=== PATIENT | female | born 1935 | race Caucasian/White ===

== ENCOUNTER 2025-07-25 19:56 | Inpatient (IN) | payer MEDICARE, SELFPAY ==
[2025-07-25] VITALS (11 sets, daily range): BP systolic 81–135; BP diastolic 54–93; BMI 37.3; BMI 35.7
[2025-07-25 14:53] LABS: Hematocrit 43.5 % (37.0-47.0); Hemoglobin 14.9 g/dL (12.0-16.0); Mean Corp Hgb Conc. 34.3 g/dL (33.0-37.0); Mean Corpuscular Volume 89.0 fL (81.0-99.0); Nucleated Red Blood Cells % 0 %; Platelet Count 223 10^3/uL (130-400); Red Cell Dist. Width 13.7 % (11.5-14.5)
[2025-07-25 15:04] LABS: Blood Urea Nitrogen 14 mg/dl (7-17); Calcium 8.8 mg/dl (8.4-10.2); Carbon Dioxide 24 mmol/L (22-30); Chloride 100 mmol/L (98-107); Estimated Creatinine Clearance 77 ml/min; Glucose 94 mg/dl (70-99); Lipase 44 U/L (23-300); Sodium 136 mmol/L (135-145); eGFR > 60.00
[2025-07-25] MEDS: NSS 1000 IV ×2 (15:06→21:08)
--- NOTE | 2025-07-25 15:44 | ED.GENMED ---
History of Present Illness
<Lilian Hickman PA-C - Last Filed: 07/26/25 08:06>
General
Chief Complaint: Dehydration Symptoms
Time Seen by Provider: 07/25/25 13:15
<Dmitriy Quinones PA-C - Last Filed: 07/25/25 19:58>
General
Source: patient
History of Present Illness
History of Present Illness:
.
Phy Exam
<Dmitriy Quinones PA-C - Last Filed: 07/25/25 19:58>
Physical Exam
Physical Exam:
.
Course
<Lilian Hickman PA-C - Last Filed: 07/26/25 08:06>
Orders/Labs/Results
Orders:
Orders
07/25/25 14:22
IV Insert/Care/Rem.- Treatment PRN
0.9% Sodium Chloride 1000 ml [Nss] 1,000 ml IV BOLUS
Obstruct Series W/PA Chest [CR Obstruct Series W/pa Chest] Urgent
Comment:
Reason For Exam: H/O SBO; DIARRHEA
07/25/25 14:33
Basic Metabolic Panel Urgent
Complete Blood Count/With Diff Urgent
Lipase Urgent
C DIFF [C difficile Antigen & Toxins] Urgent
JANAE Source: Feces/Stool
Specimen Description:
Date Specimen was Collected: 07/25/25
Time Specimen was Collected: 14:31
Stool Culture Urgent
JANAE Source: Feces/Stool
Specimen Description:
Date Specimen was Collected: 07/25/25
Time Specimen was Collected: 14:31
07/25/25 16:01
Basic Metabolic Panel Urgent
07/25/25 16:57
Sownr-Jjxq-Hgkhcnu Stat
Comment: ADD ON
Magnesium Stat
Comment: ADD ON
Phosphorus Stat
Comment: ADD ON
Potassium Stat
07/25/25 17:07
Add On- LAB Urgent
Tests Added?: magnesium
07/25/25 17:08
Vancomycin HCl [Firvanq] 125 mg PO NOW STA
07/25/25 17:18
Magnesium Sulfate 2 Gram/50 ml [Magnesium Sulfate] 2 gram in 50 ml IV NOW
Potassium Chloride [KCl] 40 meq PO NOW STA
07/25/25 19:29
Admit/Transfer Patient As Directed
Co-Sign Provider:
Level of Care: Inpatient admission
Assign to:: Medical/Surgical
Physician / Group: Luke
Diagnosis: Recurrent cdiff
Reason for Hospitalization: severe diarrhea with cdiff
Expected length of stay greater than two midnights?: Yes
ELOS- Estimated Length of Stay in days: 2
I certify the patient meets the requirements for IP care: Yes
Code Status As Directed
Resuscitation Status: Do not resuscitate
Reached after discussion with pt or family/Healthcare POA: Yes
PRN Pain Medication Management As Directed
May give lesser potent ordered pain med per pt: Yes
preference::
Protocol:: Medication orders for pain may be administered in a
manner that supports deferring to patient preference
when the pt is:
- Requesting an ordered lesser potent pain medication.
Least to most potent pain medications are defined
as: acetaminophen < NSAID < tramadol < opioids
(morphine, oxycodone, hydromorphone).
- Requesting a lesser dose of the same medication IF
ORDERED.
- Requesting a less intrusive route of administration
if both routes are prescribed by the provider (PO <
IV).
07/25/25 19:30
DNR Bracelet Application ONCE
07/25/25 19:34
Add On- LAB Stat
Tests Added?: phosphorus
07/25/25 20:26
0.9% Sodium Chloride 1000 ml [Nss] 1,000 ml IV 125 mls/hr
Acetaminophen [Tylenol] 650 mg PO Q4HPRN PRN
Ketorolac [Toradol] 10 mg IV Q6HPRN PRN
Ondansetron Injectable [Zofran] 4 mg IV Q6HPRN PRN
07/25/25 20:26
VTE Contraindication Routine
VTE Mechanical Device Contraindication: Medical Contraindication
Pharmocologic Contraindication: Medical Contraindication
Activity As Directed
Activity Level: With Assistance
Vital Signs As Directed
Frequency: Per unit guidelines
07/25/25 21:00
Apixaban [Eliquis] 5 mg PO BID
07/26/25 00:00
Vancomycin HCl [Firvanq] 125 mg PO Q6
07/26/25 Breakfast
Regular
At Your Request: Full Participation
Does patient need a safe tray?: No
07/26/25 07:20
Basic Metabolic Panel IN AM
Complete Blood Count/No Diff IN AM
Magnesium IN AM
07/26/25 08:00
Amlodipine [Norvasc] 5 mg PO DAILY
Methimazole [Tapazole] 5 mg PO DAILY
Abnormal Lab Results
07/25/25 07/25/25
14:33 16:57
WBC 15.0 H 10^3/uL
(4.8-10.8)
Abs Immat Gran (auto) 0.1 H 10^3/uL
(0-0.05)
Absolute Neuts (auto) 10.9 H 10^3/uL
(1.4-6.5)
Absolute Monos (auto) 1.6 H 10^3/uL
(0.1-0.6)
Immature Gran % 0.6 H %
(0-0.5)
Lymphocytes % 15.5 L %
(20.5-51.1)
Monocytes % 10.6 H %
(1.7-9.3)
Potassium 2.9 L mmol/L
(3.5-5.1)
Magnesium 1.3 L mg/dl
(1.6-2.3)
Total Bilirubin 1.6 H mg/dl
(0.2-1.3)
Direct Bilirubin 0.5 H mg/dl
(0.0-0.4)
AST 37 H U/L
(14-36)
07/25/25 14:33
07/25/25 16:57
Vital Signs
Initial and Last Documented VS:
Initial Vital Signs
Temp Pulse Resp BP Pulse Ox
36.7 C 80 17 126/71 97
07/25/25 12:32 07/25/25 12:32 07/25/25 12:32 07/25/25 12:32 07/25/25 12:32
Last Documented Vital Signs
Temp Pulse Resp BP Pulse Ox
36.8 C 85 16 120/63 94
07/26/25 03:56 07/26/25 03:56 07/26/25 03:56 07/26/25 03:56 07/26/25 03:56
<Dmitriy Quinones PA-C - Last Filed: 07/25/25 19:58>
Orders/Labs/Results
Orders:
Orders
07/25/25 14:22
IV Insert/Care/Rem.- Treatment PRN
0.9% Sodium Chloride 1000 ml [Nss] 1,000 ml IV BOLUS
Obstruct Series W/PA Chest [CR Obstruct Series W/pa Chest] Urgent
Comment:
Reason For Exam: H/O SBO; DIARRHEA
07/25/25 14:33
Basic Metabolic Panel Urgent
Complete Blood Count/With Diff Urgent
Lipase Urgent
C DIFF [C difficile Antigen & Toxins] Urgent
JANAE Source: Feces/Stool
Specimen Description:
Date Specimen was Collected: 07/25/25
Time Specimen was Collected: 14:31
Stool Culture Urgent
JANAE Source: Feces/Stool
Specimen Description:
Date Specimen was Collected: 07/25/25
Time Specimen was Collected: 14:31
07/25/25 16:01
Basic Metabolic Panel Urgent
07/25/25 16:57
Pqzmn-[id number]-Rtztexq Stat
Comment: ADD ON
Magnesium Stat
Comment: ADD ON
Phosphorus Stat
Comment: ADD ON
Potassium Stat
07/25/25 17:07
Add On- LAB Urgent
Tests Added?: magnesium
07/25/25 17:08
Vancomycin HCl [Firvanq] 125 mg PO NOW STA
07/25/25 17:18
Magnesium Sulfate 2 Gram/50 ml [Magnesium Sulfate] 2 gram in 50 ml IV NOW
Potassium Chloride [KCl] 40 meq PO NOW STA
07/25/25 19:29
Admit/Transfer Patient As Directed
Co-Sign Provider:
Level of Care: Inpatient admission
Assign to:: Medical/Surgical
Physician / Group: Luke
Diagnosis: Recurrent cdiff
Reason for Hospitalization: severe diarrhea with cdiff
Expected length of stay greater than two midnights?: Yes
ELOS- Estimated Length of Stay in days: 2
I certify the patient meets the requirements for IP care: Yes
Code Status As Directed
Resuscitation Status: Do not resuscitate
Reached after discussion with pt or family/Healthcare POA: Yes
PRN Pain Medication Management As Directed
May give lesser potent ordered pain med per pt: Yes
preference::
Protocol:: Medication orders for pain may be administered in a
manner that supports deferring to patient preference
when the pt is:
- Requesting an ordered lesser potent pain medication.
Least to most potent pain medications are defined
as: acetaminophen < NSAID < tramadol < opioids
(morphine, oxycodone, hydromorphone).
- Requesting a lesser dose of the same medication IF
ORDERED.
- Requesting a less intrusive route of administration
if both routes are prescribed by the provider (PO <
IV).
07/25/25 19:30
DNR Bracelet Application ONCE
07/25/25 19:34
Add On- LAB Stat
Tests Added?: phosphorus
07/25/25 20:26
0.9% Sodium Chloride 1000 ml [Nss] 1,000 ml IV 125 mls/hr
Acetaminophen [Tylenol] 650 mg PO Q4HPRN PRN
Ketorolac [Toradol] 10 mg IV Q6HPRN PRN
Ondansetron Injectable [Zofran] 4 mg IV Q6HPRN PRN
07/25/25 20:26
VTE Contraindication Routine
VTE Mechanical Device Contraindication: Medical Contraindication
Pharmocologic Contraindication: Medical Contraindication
Activity As Directed
Activity Level: With Assistance
Vital Signs As Directed
Frequency: Per unit guidelines
07/25/25 21:00
Apixaban [Eliquis] 5 mg PO BID
07/26/25 00:00
Vancomycin HCl [Firvanq] 125 mg PO Q6
07/26/25 Breakfast
Regular
At Your Request: Full Participation
Does patient need a safe tray?: No
07/26/25 07:20
Basic Metabolic Panel IN AM
Complete Blood Count/No Diff IN AM
Magnesium IN AM
07/26/25 08:00
Amlodipine [Norvasc] 5 mg PO DAILY
Methimazole [Tapazole] 5 mg PO DAILY
Abnormal Lab Results
07/25/25 07/25/25
14:33 16:57
WBC 15.0 H 10^3/uL
(4.8-10.8)
Abs Immat Gran (auto) 0.1 H 10^3/uL
(0-0.05)
Absolute Neuts (auto) 10.9 H 10^3/uL
(1.4-6.5)
Absolute Monos (auto) 1.6 H 10^3/uL
(0.1-0.6)
Immature Gran % 0.6 H %
(0-0.5)
Lymphocytes % 15.5 L %
(20.5-51.1)
Monocytes % 10.6 H %
(1.7-9.3)
Potassium 2.9 L mmol/L
(3.5-5.1)
Magnesium 1.3 L mg/dl
(1.6-2.3)
Total Bilirubin 1.6 H mg/dl
(0.2-1.3)
Direct Bilirubin 0.5 H mg/dl
(0.0-0.4)
AST 37 H U/L
(14-36)
07/25/25 14:33
07/25/25 16:57
Vital Signs
Initial and Last Documented VS:
Initial Vital Signs
Temp Pulse Resp BP Pulse Ox
36.7 C 80 17 126/71 97
07/25/25 12:32 07/25/25 12:32 07/25/25 12:32 07/25/25 12:32 07/25/25 12:32
Last Documented Vital Signs
Temp Pulse Resp BP Pulse Ox
36.8 C 85 16 120/63 94
07/26/25 03:56 07/26/25 03:56 07/26/25 03:56 07/26/25 03:56 07/26/25 03:56
<Lilian Hickman PA-C - Last Filed: 07/26/25 08:06>
MDM/Problems Addressed
Differential Diagnosis Includes:
see MDM
MDM/Problems Addressed:
Note:
CHIEF COMPLAINT(S)
Diarrhea since Thursday night.
HISTORY OF PRESENT ILLNESS
The patient 89 y/o F, presents with diarrhea that started 2 days ago.
pt was hospitalized at [facility] discharged 07/03 with vancomycin for c diff.
She describes her bowel movements as mostly diarrhea, with occasional episodes being clear orange liquid. She states, 'One or two times, like I went to the bathroom, and I went to get back in bed, and I thought I had gas. And then I realized that
wasnt gas. It was liquid.' She denies seeing blood but mentions, 'every once in a while when I look in the toilet, its the same orange liquid stuff.' The diarrhea has persisted despite a previously prescribed course of Vancomycin, which she took
after being diagnosed with Clostridioides difficile (C. diff) infection about 3 weeks ago following a hospital admission for a partial bowel obstruction.
when pt anneliese tto and had diarrhea, she was also having a lot of pain, was diagnosed with partial SBO that resolved on it's own without NGT and surgery
The patient describes feeling dehydrated and expressed hope for receiving fluids. pt has no pain today
she denies fever, bloody stool, abdominal distension, vomitng
PAST MEDICAL AND SURGICAL HISTORY
The patient was previously hospitalized for a partial bowel obstruction, which required surgery to remove a section of her intestine years ago. She notes, 'they took out three inches of my intestine' due to a previous bowel obstruction caused by
scar tissue from earlier surgeries.
ADDITIONAL HISTORY OBTAINED FROM SOURCES OTHER THAN THE PATIENT
Per the patients friend, 'She told me every time she got up, it would have to come out,' indicating significant frequency in bowel movements.
CHRONIC MEDICAL CONDITIONS SIGNIFICANTLY AFFECTING CARE
The patient has a history of recurrent bowel obstructions and recent C. diff infection, treated with Vancomycin.
SOCIAL HISTORY
The patient mentions being nearly 89 years old and is set to get hearing aids, indicating some hearing loss. Recent exploration of healthcare options was motivated by her sons preference, as stated, 'My son loves this hospital,' highlighting
supportive family involvement in her care choices.
REVIEW OF SYSTEMS
- Gastrointestinal:
- Diarrhea starting Thursday night.
- Occasional clear orange liquid in stool.
- Prior abdominal pain, resolved.
- General:
- Feeling of dehydration.
PHYSICAL EXAM
GENERAL: Alert , in no apparent distress
EYE: pupils equal and reactive
NECK: Supple
ENT: o/p clr, mmm.
CARDIAC: Regular rate and rhythm .
LUNGS: Clear breath sounds bilaterally, no acute respiratory distress, no wheezes/rales/rhonchi
ABDOMEN: Soft obese, without focal tenderness, no r/g, no cvat, normal bowel sounds
NEUROLOGICAL: Alert and oriented, no focal neuro deficits
SKIN: Warm and dry, skin intact.
MUSCULOSKELETAL: No edema, well perfused. neg rodrigo's sign
PSYCH: Normal and appropriate interaction.
- Nursing notes reviewed, and vital signs reviewed.
PLAN
- Initiate fluid therapy to address dehydration.
- Conduct abdominal X-ray to assess for possible bowel obstruction.
- Await blood work results to determine the need for further medical intervention or hospitalization.
DIFFERENTIAL DIAGNOSIS
The Differential Diagnosis includes, in no particular order and is not limited to:
1. Clostridioides difficile (C. diff) infection recurrence
2. Gastroenteritis
3. Partial bowel obstruction
4. Irritable bowel syndrome
5. Inflammatory bowel disease
6. Malabsorption syndrome
7. Ischemic colitis
8. Microscopic colitis
9. Medication-induced diarrhea
10. Small intestinal bacterial overgrowth
07/25/25 - 16:46
Antigen test for C-diff is positive, but toxin test is negative. Based on discussion with Dr. Quesada, reinfection is possible, but recurrence less likely without positive toxin result. Potassium level could not be obtained due to clotting, will
attempt redraw from alternative site to ensure accurate potassium level, particularly important given patients history of low potassium during diarrhea. Decision pending on initiating antibiotics; patient hesitant but understands risk of not
treating possible C-diff due to persistent diarrhea. Will proceed with antibiotic treatment while continuing to monitor potassium levels.
<Lilian Hickman PA-C - Last Filed: 07/26/25 08:06>
*Pulse Oximetry
SaO2: 95
Oxygen Mode of Delivery: Room air
<Dmitriy Quinones PA-C - Last Filed: 07/25/25 19:58>
*Pulse Oximetry
Patient hypoxic: no
*Critical Care Note
Total Time (30-74mins, 75-104mins- exclusive of procedures): Not Applicable
<Dmitriy Quinones PA-C - Last Filed: 07/25/25 19:58>
Patient Management
Discussion with other providers: Hospitalist
Escalation/DeEscalation of care consider admission/obs:
Patient received in signout pending chemistry results given the labs were persistently hemolyzing. Potassium in the come back at 2.9, magnesium at 1.3. IV magnesium repletion and p.o. potassium repletion ordered. While getting the medications,
patient was persistently having diarrhea, estimated to be at least 4-5 episodes. Given the persistent diarrhea in the setting of recent C. difficile colitis will admit for continued evaluation and treatment. Hospitalist team notified and accepts.
ED Attending Note
<Lilian Hickman PA-C - Last Filed: 07/26/25 08:06>
-
Portions of this chart may have been created with voice recognition software.� Occasional wrong word or��sound alike� substitutions may have occurred due to the inherent limitations of voice recognition software.
Discharge Plan
Departure
Patient Disposition: Admit
Date of Disposition: 07/25/25
Time of Disposition: 19:04
Presentation/result/management discussed w/ accepting MD/DO: Hospitalist
Discharge Problem:
Diarrhea, Acute hypokalemia, Hypomagnesemia
Interventions
Interventions:
*Risk Screen - Suicide Last Done: 07/25/25 12:39
*General Assessment Last Done: 07/25/25 12:39
*Neglect/Abuse Screening Last Done: 07/25/25 12:39
*ED- Fall Risk Assessment Last Done: 07/25/25 13:05
*ED COVID-19 Vaccine History Last Done: 07/25/25 12:39
*ED Influenza Vaccine History Last Done: 07/25/25 12:39
*Nursing Disposition Last Done: 07/25/25 20:25
ED- Cardiac Assessment Last Done: 07/25/25 15:00
ED- Neurological Assessment Last Done: 07/25/25 15:00
ED- Pulmonary Assessment Last Done: 07/25/25 15:00
Discharge Date and Time
Discharge Date/Time: 07/25/25 20:26
[2025-07-25 16:30] LABS: Blood Urea Nitrogen 14 mg/dl (7-17); Calcium 8.4 mg/dl (8.4-10.2); Carbon Dioxide 27 mmol/L (22-30); Chloride 101 mmol/L (98-107); Estimated Creatinine Clearance 77 ml/min; Glucose 94 mg/dl (70-99); Sodium 135 mmol/L (135-145); eGFR > 60.00
[2025-07-25 17:17] LABS: Magnesium 1.3 mg/dl (1.6-2.3); Potassium 2.9 mmol/L (3.5-5.1)
[2025-07-25 17:31] LABS: ALT (SGPT) 16 U/L (0-35); AST (SGOT) 37 U/L (14-36); Albumin 4.0 g/dl (3.5-5.0); Alkaline Phosphatase 67 U/L (38-126); Total Protein 7.2 g/dl (6.3-8.2)
[2025-07-25] MEDS: MAGNESIUM SULFATE 50 IV (18:08)
[2025-07-25] MEDS: FIRVANQ 125 MG PO ×2 (18:15→23:29)
[2025-07-25] MEDS: KCL 40 MEQ PO (18:16)
--- NOTE | 2025-07-25 19:07 | HPS.HSE ---
Family Physician
-
Family Physician: Dave Mcknight
Chief Complaint
-
Dehydration
History of Present Illness
This is a 89-year-old female with past medical history of bowel obstruction status post partial small bowel resection presenting to the emergency department with recurrence of diarrhea.
She reports she has been having diarrhea about every 15 minutes, watery and appears to be orange liquid. She reports that there was no gas. She has no melena or hematochezia. She denies any fevers or chills.
She stated that she was hospitalized at [facility] for small bowel obstruction on and had vancomycin for C. difficile at that time. She did complete the course.
In the emergency department here she was afebrile, blood pressure was 126/70, pulse was 89 and she was satting 96% on room air.
Exam white count was 15, hemoglobin ambulatory normal. Electrolytes were abnormal with a potassium of 2.9 and a magnesium of 1.3, BUN and creatinine were normal.
Medical History
Past Medical History
Past Medical History: Reports None, Arrhythmia (Paroxysmal atrial fibrillation on anticoagulation), HTN and Hyperthyroidism
Past Surgical History: Reports Bowel Resection (partial)
Social History
Tobacco: Non-smoker
Alcohol: None
Drug: None
Personal:
Family History
Family History: Not pertinent
Allergies / Home Medications
Allergies reflects when Allergies were last updated in [facility].
Home Medications with original date entered in [facility]
Allergy/Medication List:
Allergies
Allergy/AdvReac Type Severity Reaction Status Date / Time
epinephrine Allergy Nausea / Verified 07/25/25 12:35
Vomiting
erythromycin base (From Allergy Unknown Verified 07/25/25 12:35
Erythrocin)
lisinopril Allergy COUGH Verified 07/25/25 17:08
Penicillins Allergy Unknown Verified 07/25/25 12:35
Home Medications
vancomycin 125 mg capsule 125 mg PO QID 14 days #56 caps 07/25/25
Review of Systems
-
Constitutional: Reports No Symptoms
EENT: Reports No Symptoms
Respiratory: Reports No Symptoms
Cardiac: Reports No Symptoms
Abdomen/GI: Reports Diarrhea
: Reports No Symptoms
Musculoskeletal: Reports No Symptoms
Skin: Reports No Symptoms
Neurological: Reports No Symptoms
Endocrine: Reports No Symptoms
Hematologic/Lymphatic: Reports No Symptoms
Psych: Reports No Symptoms
Physical Exam
Vital Signs
Vital Signs
Temp Pulse Resp BP Pulse Ox
97.6 F 89 20 126/70 96
07/25/25 13:05 07/25/25 17:08 07/25/25 17:08 07/25/25 17:08 07/25/25 17:08
Physical Exam
General: Well Developed, Well Nourished and No Apparent Distress
HEENT: NormoCephalic, Moist mucous membranes and Atraumatic
Respiratory: Clear
Cardiac: S1/S2 and Regular Rhythm; No Murmur or Rub
GI: Soft, Non Tender, Non Distended and Normal Bowel Sounds; No Organomegaly
Rectal: Deferred by Provider
Musculoskeletal: No Clubbing, No Cyanosis and No Edema
Skin: No Rash
Neuro: AO x 3 and Nonfocal/grossly intact
Laboratory Results
-
07/25/25 14:33
07/25/25 16:57
Laboratory Results
Total Bilirubin 1.6 mg/dl (0.2-1.3) H 07/25/25 16:57
AST 37 U/L (14-36) H 07/25/25 16:57
ALT 16 U/L (0-35) 07/25/25 16:57
Alkaline Phosphatase 67 U/L (38-126) 07/25/25 16:57
Lipase 44 U/L (23-300) 07/25/25 14:33
Data Reviewed
-
Lab Data: Labs Reviewed by me
Old Records: Reviewed
Impression/Plan
-
IMPRESSION:
89-year-old with past medical history of hypertension, hypothyroid, partial small bowel obstruction with history of last a small small bowel resection who was recently diagnosed with C. difficile at [facility] on July 03 completing a
10-day course of oral vancomycin and now returns to the emergency department with sudden 3 days of worsening diarrhea. She reports going to the bathroom every 15 minutes. In the emergency department she has voluminous amounts of diarrhea with very
frequent stooling. She is hemodynamically stable and afebrile, has leukocytosis and has marked electrolyte abnormality with hypokalemia and hypomagnesemia. C. difficile toxin negative, C. difficile antigen positive. With the degree of diarrhea
clinically despite lack of toxin positivity she likely has recurrence of C. difficile.
PLAN:
Cdiff diarrhea - First recurrence
- admit to med/surg
- started vancomycin in ED, will continue 125 q 6 hours for now, consider fidoxamycin for recurrent cdiff vs vanc taper
- IV NS + potassium and magnesium supplementation
- hold hctz for now
- ID consult
Hyperthyroid
- continue methimazole
Hypertension
� Continue amlodipine
Proximal atrial fibrillation -currently rate controlled
� Patient is not on any rate control agent, monitor for now
� Continue Eliquis
DVT prophylaxis�on Eliquis
CODE STATUS�DNR
[2025-07-25] MEDS: ELIQUIS 5 MG PO (21:15)
[2025-07-25] MEDS: KCL 160 MEQ IV (23:28)
[2025-07-26 03:56] VITALS: BP 120/63
[2025-07-26] MEDS: FIRVANQ 125 MG PO ×4 (05:20→23:04)
[2025-07-26] MEDS: NSS 1000 IV ×3 (06:30→21:49)
[2025-07-26 07:44] LABS: Hematocrit 38.8 % (37.0-47.0); Hemoglobin 13.2 g/dL (12.0-16.0); Mean Corp Hgb Conc. 34.0 g/dL (33.0-37.0); Mean Corpuscular Volume 91.1 fL (81.0-99.0); Platelet Count 182 10^3/uL (130-400); Red Cell Dist. Width 13.6 % (11.5-14.5)
[2025-07-26 07:50] VITALS: BP 128/69
[2025-07-26 08:13] LABS: Blood Urea Nitrogen 10 mg/dl (7-17); Calcium 8.0 mg/dl (8.4-10.2); Carbon Dioxide 25 mmol/L (22-30); Chloride 109 mmol/L (98-107); Estimated Creatinine Clearance 75 ml/min; Glucose 98 mg/dl (70-99); Magnesium 1.8 mg/dl (1.6-2.3); Potassium 3.2 mmol/L (3.5-5.1); Sodium 138 mmol/L (135-145); eGFR > 60.00
--- NOTE | 2025-07-26 08:23 | W.PN.HOSP.TC ---
Today's Communication/Plan
-
Continue oral vancomycin
IVF/hold HCTZ
Replete potassium as needed
ID consult
Assessment / Plan
Assessment / Plan
#C. difficile colitis
- Recently completed 10-day course of vancomycin prescribed at [place], diarrhea worsened recently
- Upon arrival had positive C. difficile antigen though negative toxin, diarrhea consistent with C. difficile
- Was resumed on oral vancomycin 125 mg every 6 hours; milder phenotype, no leukocytosis or BASSAM
- Holding home diuretic for now, receiving IV fluid supportively
- Consult ID for consideration of fidaxomicin
- Trend CBC and temperature curve, monitor BMs
- Avoid Imodium
#Hypokalemia
- Likely associated with diarrhea and GI losses
- Potassium this morning 3.2, magnesium 1.8
- Ordered 80 mEq KCl
- Trend BMP and mag
#Hyperthyroidism
- Home regimen includes methimazole
- Unclear etiology, here stable at this time
- Do not suspect diarrhea from overtreatment
- Will add on TSH for completeness
#Primary hypertension
- Home regimen includes amlodipine and HCTZ
- Holding diuretic due to significant watery diarrhea
- Continue to monitor vitals
#Paroxysmal atrial fibrillation
- Not on rate or rhythm control, home regimen includes Eliquis for AC
- Appears to be in NSR right now, no RVR
- Monitor telemetry
Diet: Regular
DVT prophylaxis: Home Eliquis
CODE STATUS: DNR/DNI
Disposition: PT consulted
Anticipated Discharge: > 48 hours
Subjective/Interval History
-
Date of Service: July 26, 2025
Seen and examined at the bedside. No acute events reported overnight. AFVSS this morning
Potassium 3.2 on a.m. labs. No leukocytosis, renal function at baseline and stable
Patient states she still has watery bowel movements this morning. Mentions that they initially improved on vancomycin though after completing the course came back. She states she did try to eat some vegetables and soup which may have been too
aggressive
Objective Data
-
Labs:
Laboratory Results
07/26/25
07:20
WBC 10.0
Hgb 13.2
Hct 38.8
Plt Count 182
Sodium 138
Potassium 3.2 L
Chloride 109 H
Carbon Dioxide 25
BUN 10
Creatinine 0.6
Glucose 98
Calcium 8.0 L
Vital Signs:
Vital Signs
Temp Pulse Resp BP Pulse Ox
98.2 F 85 16 120/63 94
07/26/25 03:56 07/26/25 03:56 07/26/25 03:56 07/26/25 03:56 07/26/25 03:56
Review of Systems
-
History Source: Patient
All other systems: Reviewed and negative
Physical Exam
-
General: Well Developed, No Apparent Distress and Obese
HEENT: Normocephalic, Atraumatic, Moist Mucous Membranes and Anicteric
Respiratory: Clear to Auscultation and Non Labored Respirations; Negative Accessory Resp Muscle Use
Cardiac: Regular Rhythm and S1/S2; Negative Murmur, Rub or Gallop
GI: Soft, Nontender, Nondistended and Normal Bowel Sounds
Musculoskeletal: No Clubbing, No Cyanosis and No Edema
Skin: Warm and Dry; Negative Rash
Neuro: AO x 3, Nonfocal/Grossly Intact and Central Nerve's Intact
Psych: Calm
Data Reviewed
-
Labs: Labs Reviewed by me and Discussed with Patient
[2025-07-26] MEDS: NORVASC 5 MG PO (09:41)
[2025-07-26] MEDS: TAPAZOLE 5 MG PO (09:41)
[2025-07-26] MEDS: ELIQUIS 5 MG PO ×2 (09:41→19:36)
[2025-07-26] MEDS: BenGay-Like 1 APPLIC TOPICAL ×3 (10:34→21:50)
[2025-07-26] MEDS: KCL 40 MEQ PO ×2 (10:34→13:25)
--- NOTE | 2025-07-26 10:37 | CM ---
pharmacy district manager reviewed patient's chart and met with patient and patient lives alone in a one story home with 2 steps to enter, patient is independent with adl's and ambulation, patient has a walker, cane and w/c, that she does not use, plan is to
home when stable, will follow for any new medications at discharge.
PCP: Dave Mcknight
Pharmacy: [facility] pharmacy
Plan; Home when stable.
--- NOTE | 2025-07-26 10:41 | CON.ID ---
Consultation
-
Date/Time Consultation Requested: 07/26/25 8:15
Date/Time Consultation Performed: 07/26/25 10:41
Requesting Provider: Dr Christian
Performing Provider: Dr Fisher
Reason for Consultation: C. diff colitis, dx 07/03, worsening diarrhea
Chief Complaint / Past History
Chief Complaint
Dehydration
History of Present Illness
Ms Torrez is an 89 year old female with history notable for bowel obstruction s/p partial small bowel resection presenting here for copious diarrhea - reportedly ever 15 minutes, watery and orange. No melena or hematochezia. No fevers or chills.
Note that she had a recent hospitalization at [facility] 07/03 for small bowel obstruction which was complicated by C difficile treated with oral vancomycin. She would have completed the course about two weeks ago.
Since arrival here she has been afebrile, bp stable, wbc initially 15 now 10, hgb 13.2, plt 182,no L shift, na 138, cr 0.6, c difficile ag positive toxin negative, stool culture in progress. Patient is currently on oral vancomycin. ID is consulted
for assistance with management.
Past History
Additional Past Medical History:
Arrhythmia (Paroxysmal atrial fibrillation on anticoagulation), HTN and Hyperthyroidism
Additional Past Surgical History:
Bowel Resection (partial)
Allergy History:
epinephrine Allergy (Verified 07/25/25 12:35)
Nausea / Vomiting
erythromycin base (From Erythrocin) Allergy (Verified 07/25/25 12:35)
Unknown
lisinopril Allergy (Verified 07/25/25 17:08)
COUGH
Penicillins Allergy (Verified 07/25/25 12:35)
Unknown
Medications Reviewed: Yes
Social History
Tobacco: Non-Smoker
Alcohol: None
Drug: None
Family History
Family History: Not Pertinent
Review of Systems
Review of Systems
Constitutional: Reports No Symptoms
EENT: Reports No Symptoms
Respiratory: Reports No Symptoms
Cardiac: Reports No Symptoms
Abdomen/GI: Reports Diarrhea
: Reports No Symptoms
Musculoskeletal: Reports No Symptoms
Skin: Reports No Symptoms
Neurological: Reports No Symptoms
Endocrine: Reports No Symptoms
Hematologic/Lymphatic: Reports No Symptoms
Psych: Reports No Symptoms
Vital Signs
Temp Pulse Resp BP Pulse Ox
98.1 F 81 20 128/69 97
07/26/25 07:50 07/26/25 07:50 07/26/25 07:50 07/26/25 07:50 07/26/25 07:50
Physical Exam
Physical Exam
Constitutional: No Acute Distress
Cardiovascular: Regular Rate and S1/S2; Negative Murmur or Rub
Pulmonary: Clear and Symmetric; Negative Wheezes, Rales or Rhonchi
Gastrointestinal: Soft, Non Tender, Non Distended and Normal Bowel Sounds
Skin: Warm and Dry; Negative Rash or Jaundice
Lab / Diagnostic Study Results
07/26/25 07:20
07/26/25 07:20
Abs Immat Gran (auto) 0.1 10^3/uL (0-0.05) H 07/25/25 14:33
Absolute Neuts (auto) 10.9 10^3/uL (1.4-6.5) H 07/25/25 14:33
Absolute Lymphs (auto) 2.3 10^3/uL (1.2-3.4) 07/25/25 14:33
Absolute Monos (auto) 1.6 10^3/uL (0.1-0.6) H 07/25/25 14:33
Absolute Basos (auto) 0.1 10^3/uL (0-0.2) 07/25/25 14:33
Immature Gran % 0.6 % (0-0.5) H 07/25/25 14:33
Neutrophils % 72.4 % (42.2-75.2) 07/25/25:
Lymphocytes % 15.5 % (20.5-51.1) L 07/25/25:
Monocytes % 10.6 % (1.7-9.3) H 07/25/25 14:33
Eosinophils % 0.5 % (0-6) 07/25/25 14:
Basophils % 0.4 % (0-2) 07/25/25:
Microbiology Results
Micro:
07/25/25 Salmonella/Shigella Culture - Preliminary
Feces/Stool Culture in Progress
Campylobacter Culture - Preliminary
Culture in Progress
Shiga Toxin Test - Pending
07/25/25: C. difficile GDH Antigen & Toxins - Final
Feces/Stool C. difficile antigen positive, toxin negative.
Clostridium difficile present, but toxin not detected.
Patient may be a carrier, colonized with nontoxinogenic
strain or the level of toxin in sample is below detection
limits. This information should be used in conjunction with
the patient's clinical history.
Assessment / Plan
Gastroenteritis
Colonization with C difficile
- follow up stool cultures
- continue oral vancomycin given colonization with C difficile and diarrhea; risk of developing yoel C difficile
- gastroenteritis is typically self limited
- Imodium PRN
[2025-07-26 11:56] VITALS: BP 121/98
[2025-07-26] MEDS: IMODIUM 2 MG PO ×2 (13:24→19:36)
[2025-07-26 15:06] VITALS: BP 113/78
[2025-07-26 19:00] VITALS: BP 138/68
[2025-07-26 23:00] VITALS: BP 124/67
[2025-07-26] MEDS: MELATONIN 5 MG PO (23:30)
[2025-07-27 03:00] VITALS: BP 161/86
[2025-07-27] MEDS: ANESTHETIC LOZENGE 1 LOZENGE PO (04:07)
[2025-07-27] MEDS: FIRVANQ 125 MG PO ×2 (05:25→12:11)
[2025-07-27] MEDS: NSS 1000 IV (05:46)
[2025-07-27 07:02] LABS: Hematocrit 35.8 % (37.0-47.0); Hemoglobin 12.4 g/dL (12.0-16.0); Mean Corp Hgb Conc. 34.6 g/dL (33.0-37.0); Mean Corpuscular Volume 91.8 fL (81.0-99.0); Nucleated Red Blood Cells % 0 %; Platelet Count 189 10^3/uL (130-400); Red Cell Dist. Width 13.7 % (11.5-14.5)
[2025-07-27 07:12] LABS: Blood Urea Nitrogen 10 mg/dl (7-17); Calcium 8.0 mg/dl (8.4-10.2); Carbon Dioxide 22 mmol/L (22-30); Chloride 112 mmol/L (98-107); Estimated Creatinine Clearance 75 ml/min; Glucose 99 mg/dl (70-99); Magnesium 1.6 mg/dl (1.6-2.3); Potassium 3.7 mmol/L (3.5-5.1); Sodium 141 mmol/L (135-145); eGFR > 60.00
[2025-07-27 07:25] VITALS: BP 138/73
[2025-07-27] MEDS: TAPAZOLE 5 MG PO (08:47)
[2025-07-27] MEDS: BenGay-Like 1 APPLIC TOPICAL (08:47)
[2025-07-27] MEDS: ELIQUIS 5 MG PO (08:47)
[2025-07-27] MEDS: NORVASC 5 MG PO (08:47)
--- NOTE | 2025-07-27 09:48 | CM ---
Home no needs at discharge.
Plan; Home no needs.
[2025-07-27] MEDS: IMODIUM 2 MG PO (09:56)
--- NOTE | 2025-07-27 09:59 | W.PN.HOSP.TC ---
Today's Communication/Plan
-
Monitor for diarrhea
Replete K and mag
Discharge this afternoon
Assessment / Plan
Assessment / Plan
#Gastroenteritis
#Recent C. difficile colitis
- Recently completed 10-day course of vancomycin prescribed at [facility], diarrhea worsened recently
- Upon arrival had positive C. difficile antigen though negative toxin, diarrhea consistent with C. difficile
- Was resumed on oral vancomycin 125 mg every 6 hours; milder phenotype, no leukocytosis or BASSAM
- ID evaluated, suspect this is gastroenteritis, possibly viral, rather than C. difficile recurrent
- Stool cultures were taken, remain negative, Shiga toxin negative
- Trend CBC and temperature curve, monitor BMs
- Continue with Imodium as needed
- Discontinue vancomycin
#Hypokalemia
- Likely associated with diarrhea and GI losses
- Improved with repletion, K 3.8 and mag 1.8 today
- Will order additional 40 mEq KCl and 1 g mag sulfate today before discharge
- Encourage follow-up with PCP for repeat labs
#Hyperthyroidism
- Home regimen includes methimazole
- Unclear etiology, here stable at this time
- Do not suspect diarrhea from overtreatment
- Will add on TSH for completeness
#Primary hypertension
- Home regimen includes amlodipine and HCTZ
- Holding diuretic due to significant watery diarrhea
- Continue to monitor vitals
#Paroxysmal atrial fibrillation
- Not on rate or rhythm control, home regimen includes Eliquis for AC
- Appears to be in NSR right now, no RVR
- Monitor telemetry
Diet: Regular
DVT prophylaxis: Home Eliquis
CODE STATUS: DNR/DNI
Disposition: PT consulted
Anticipated Discharge: Today
Subjective/Interval History
-
Date of Service: July 27, 2025
Seen and examined at the bedside. No acute events reported overnight. AFVSS this morning
Patient states she feels very well today, denies any diarrhea as of this morning, 2 episodes reported yesterday evening
Eating breakfast and denies any complaints. Denies abdomen pain, chest pain, dyspnea, fevers or chills
Objective Data
-
Labs:
Laboratory Results
07/27/25
06:20
WBC 7.0
Hgb 12.4
Hct 35.8 L
Plt Count 189
Sodium 141
Potassium 3.7
Chloride 112 H
Carbon Dioxide 22
BUN 10
Creatinine 0.5 L
Glucose 99
Calcium 8.0 L
Vital Signs:
Vital Signs
Temp Pulse Resp BP Pulse Ox
97.8 F 85 18 138/73 95
07/27/25 07:25 07/27/25 07:25 07/27/25 07:25 07/27/25 07:25 07/27/25 07:25
I&O
07/26/25 07/27/25 07/28/25
06:59 06:59 06:59
Intake Total 1340 / 1340
Balance 1340 / 1340
Review of Systems
-
History Source: Patient
All other systems: Reviewed and negative
Physical Exam
-
General: Well Developed, No Apparent Distress and Obese
HEENT: Normocephalic, Atraumatic, Moist Mucous Membranes and Anicteric
Respiratory: Clear to Auscultation and Non Labored Respirations; Negative Accessory Resp Muscle Use
Cardiac: Regular Rhythm and S1/S2; Negative Murmur, Rub or Gallop
GI: Soft, Nontender, Nondistended and Normal Bowel Sounds
Musculoskeletal: No Clubbing, No Cyanosis and No Edema
Skin: Warm and Dry; Negative Rash
Neuro: AO x 3, Nonfocal/Grossly Intact and Central Nerve's Intact
Psych: Calm
Data Reviewed
-
Labs: Labs Reviewed by me, Discussed with Physician (Infectious disease) and Discussed with Patient
[2025-07-27] MEDS: MAGNESIUM SULFATE 102 GRAMS IV (10:49)
[2025-07-27] MEDS: KCL 40 MEQ PO (10:49)
[2025-07-27 11:30] VITALS: BP 138/61
--- NOTE | 2025-07-27 11:43 | W.DCSUMMARY ---
Discharge Summary
Discharge Data
Date of Admission: 07/25/25
Date of Discharge: 07/27/25
Total time spent discharging patient (in min): 32
-
Pending Results: Yes
Additional Pending Results:
Stool culture preliminary negative, follow-up final results with PCP
Hospital Course
Discharging physician: Toni Christian DO
Discharge disposition: Home
Primary hospital diagnoses:
Gastroenteritis
Recent C. difficile colitis
Watery diarrhea
Hypokalemia
Hypomagnesemia
Chronic discharge diagnoses:
Paroxysmal AF on Eliquis
Hyperthyroidism on methimazole
Primary hypertension
History of SBO s/p resection
Hospital course:
89-year-old female with recent hospitalization at [facility] for C. difficile colitis that presented to the hospital at [place] for watery diarrhea. Recently completed course of oral vancomycin 10-day duration, developed worsening watery
stools following completion of the antibiotics. Upon arrival had stool culture obtained and C. difficile testing. Stool culture negative for Shiga toxin, final results pending at time of discharge. C. difficile testing was positive for C.
difficile antigen though negative for toxin. Infectious disease assessed the patient and it was determined that C. difficile testing likely reflected colonization from her recent infection. Current symptoms are more likely related to viral
gastroenteritis. She had quick clinical improvement and was started on Imodium supportively. Due to diarrhea had hypomagnesemia and hypokalemia which were repleted and stable at time of discharge. No need for further antibiotics at discharge.
Recommend follow-up with PCP to repeat potassium and magnesium on routine labs.
Consultants:
Infectious disease�Shilpi Gr MD
Pertinent imaging findings: N/A
Procedures: N/A
Follow-up:
Family doctor within 1 week
Repeat labs (BMP and mag) at office appointment with PCP
Discharge Plan
-
Patient Disposition: Home (Routine Discharge)
Discharge Diagnosis/Procedures: Gastroenteritis
Recent C. difficile colitis
Hypokalemia
Hypomagnesemia
Condition: Fair
Diet: No restrictions
Additional Diets: BRAT diet as needed until symptoms resolve
Activity: As tolerated
Driving Restrictions: No driving for 24 hours
Bathing Restrictions: None
Blood Work: Follow-up with family doctor for repeat BMP, magnesium level, CBC with differential
Instructions: Viral gastroenteritis in adults
Referrals:
Dave Mcknight MD [Family Provider, Family Practice] - in less than 1 week
Additional Discharge Medication Instructions: You do not need to take vancomycin any longer
Use loperamide every 6 hours as needed for diarrhea or loose stools
Do not take hydrochlorothiazide until you see your family doctor for a follow-up office visit. Your blood pressure was fairly well-controlled without this medication while in the hospital and it increases your risks for dehydration when taken while
having diarrhea
Prescriptions:
New
Analgesic [place] (m.salic-menth) 15-10 % Cream
1 applic topical TID PRN (Reason: muscle pain) Qty: 28 0RF
loperamide 2 mg Capsule
2 mg PO Q6HPRN PRN (Reason: diarrhea) 3 Days Qty: 20 0RF
Continued
Eliquis 5 mg
5 mg PO BID
Norvasc 5 mg
5 mg PO BID
methimazole 5 mg
5 mg PO DAILY
Vitamin D3
PO DAILY
Rx Instructions:
pt unsure if it's 200 or 2000 IU
Held
hydrochlorothiazide 25 mg
25 mg PO DAILY
Hold Instructions: Until you see your family doctor in the office
Discharge Orders:
Discharge Patient (As Directed); Ordered 07/27/25
Ordered By: Toni Christian
Discharge Date and Time
Print Language: KOREAN
== END 2025-07-27 13:01 | disposition home or self-care (01) | DRG 392 ==
LOC: 4 WEST ACU 19:56
PROVIDERS: Physician Assistant; ADMITTING PHYSICIAN Internal Medicine; ATTENDING PHYSICIAN Internal Medicine; CONSULT PHYSICIAN Student in an Organized Health Care Education/Training Program; EMERGENCY PHYSICIAN Emergency Medicine; FAMILY PHYSICIAN Family Medicine
DX: A08.4 Viral intestinal infection, unspecified (principal); E87.6 Hypokalemia; A04.71 Enterocolitis due to Clostridium difficile, recurrent; E86.0 Dehydration; R19.7 Diarrhea, unspecified; H91.90 Unspecified hearing loss, unspecified ear; E83.42 Hypomagnesemia; E05.90 Thyrotoxicosis, unspecified without thyrotoxic crisis or storm; I10 Essential (primary) hypertension; I48.0 Paroxysmal atrial fibrillation; Z60.2 Problems related to living alone; Z66 Do not resuscitate; Z79.01 Long term (current) use of anticoagulants; Z88.1 Allergy status to other antibiotic agents; Z88.0 Allergy status to penicillin; Z88.8 Allergy status to other drugs, medicaments and biological substances
CPT/HCPCS: 74022; 80048; 80076; 83690; 83735; 84100; 84132; 85025; 85027; 87045; 87046; 87077; 87324; 87427; 87449; 96365; 96366; 99285